=== PATIENT | female | born 1985 | race Caucasian/White ===

== ENCOUNTER 2016-08-05 01:33 | Emergency (ER) | payer BC ==
[2016-08-05 02:14] LABS: BASOPHIL % 1.4 % (0-2); PLATELET COUNT 246 x10^3mcL (130-400); RED CELL DISTRIBUTION WIDTH 12.3 % (11.5-14.5)
[2016-08-05 02:17] LABS: CALCIUM 8.7 mg/dL (8.5-10.1); CARBON DIOXIDE 30.8 mmol/L (21-32); CHLORIDE SERUM 106 mmol/L (98-107); CREATININE SERUM 0.9 mg/dL (0.6-1.0); GFR1 > 60 mL/min; GLUCOSE SERUM 115 mg/dL (74-106); POTASSIUM SERUM 3.9 mmol/L (3.5-5.1); SODIUM SERUM 141 mmol/L (136-145)
[2016-08-05 02:20] LABS: UA SPECIFIC GRAVITY 1.025 (1.005-1.035); microscopic required? YES; urine erythrocyte TRACE (NEGATIVE)
[2016-08-05 02:22] LABS: ALBUMIN 3.6 g/dL (3.4-5.0); ALKALINE PHOSPHATASE 71 U/L (46-116); ALT/SGPT 37 U/L (14-59); AMYLASE 33 U/L (25-115); AST/SGOT 31 U/L (15-37); BILIRUBIN TOTAL 0.31 mg/dL (0.20-1.00); LIPASE 160 IU/L (73-393); TOTAL PROTEIN, SERUM 7.2 g/dL (6.4-8.2)
[2016-08-05 04:25] VITALS: BP 119/73
== END 2016-08-05 04:25 | disposition home or self-care (01) ==
LOC: ED 01:33
PROVIDERS: Emergency Medicine
DX: K80.70 Calculus of gallbladder and bile duct without cholecystitis without obstruction (principal); R11.10 Vomiting, unspecified
CPT/HCPCS: Q0092